=== PATIENT | female | born 1955 | race Caucasian/White ===

== ENCOUNTER 2021-04-01 22:00 | Observation (INO) ==
[2021-04-01] MEDS ORDERED: ASPIRIN CHEW 324 MG PO STA (22:27)
[2021-04-01 22:39] LABS: Basophils # (auto) 0.04 K/uL (0-0.2); Basophils % (auto) 0.4 %; Eosinophils # (auto) 0.34 K/uL (0-0.5); Eosinophils % (auto) 3.5 %; Hematocrit (blood only) 38.8 % (37-47); Hemoglobin 13.7 g/dL (12.0-16.0); Immature Granulocytes # (auto) 0.01 K/uL (0.00-0.02); Immature Granulocytes % (auto) 0.1 %; Lymphocytes # (auto) 4.03 K/uL (1.2-3.4); Lymphocytes % (auto) 41.3 %; Mean Corpuscular Hemoglobin 30.5 pg (25-34); Mean Corpuscular Hgb Conc 35.3 g/dL (32-36); Mean Corpuscular Volume 86.4 fL (80-100); Mean Platelet Volume 10.7 fL (7.4-10.4); Monocytes # (auto) 1.02 K/uL (0.11-0.59); Monocytes % (auto) 10.5 %; Neutrophils # (auto) 4.32 K/uL (1.4-6.5); Neutrophils % (auto) 44.2 %; Platelet Count 246 K/uL (130-400); RDW Coefficient of Variation 13.1 % (11.5-14.5); RDW Standard Deviation 41.7 fL (36.4-46.3); Red Blood Count 4.49 M/uL (4.2-5.4); White Blood Count 9.76 K/uL (4.8-10.8)
--- NOTE | 2021-04-01 22:40 | Emergency Department Note ---
History of Present Illness General Chief Complaint: Chest Pain Stated Complaint: CHEST PAIN - SOB - JAW PAIN - HEADACHE Time Seen by Provider: 04/01/21 22:10 History of Present Illness Provider Complaint: chest pain Onset (ago): hour(s) 3 Time: 19:30 Duration: improved Onset: during rest Pain Location: substernal Pain Radiation: jaw/teeth Severity: moderate Maximum Pain Intensity: 8 Current Pain Intensity: 1 Quality: + other (pressure) Relieved By: + nothing Exacerbated By: + nothing Context: + recent travel (travel to [place]); no recent illness, no recent surgery, no recent immobilization, no trauma/injury and no history of DVT/PE Associated symptoms: + dyspnea; no nausea, no vomiting, no syncope, no palpitations, no fever, no cough and no leg swelling Home Medications Medication Instructions Recorded Confirmed Type cholecalciferol (vitamin D3) 0 mcg PO DAILY 04/01/21 04/01/21 History [Vitamin D3] magnesium 200 mg PO DAILY 04/01/21 04/01/21 History vitamin E 0 unit PO DAILY 04/01/21 04/01/21 History Allergies Allergy/AdvReac Type Severity Reaction Status Date / Time codeine Allergy Mild Rash Verified 04/01/21 22:56 Past Med/Surg History Medical History (Updated 04/02/21 @ 00:44 by Antonio Caal) HLD (hyperlipidemia) No pertinent past medical history Surgical History (Updated 04/01/21 @ 22:38 by Antonio Caal) No pertinent past surgical history Social History Smoking Status: Former smoker Tobacco Type: Cigarettes Feels Safe at Home: Yes Review of Systems A total of 10 systems reviewed and were otherwise negative Physical Exam Vital Signs Vital Signs - 24 hr 04/01/21 22:04 04/01/21 22:14 04/01/21 22:20 Temperature 36.4 C L Temperature Source Temporal Artery Scan Pulse Rate 88 84 Pulse Rate from SpO2 Sensor 85 Pulse Rhythm Regular Respiratory Rate 16 15 Respiratory Depth Normal Blood Pressure 125/81 Blood Pressure Mean 95 Pulse Oximetry 100 100 Oxygen Delivery Method Room Air Room Air Sepsis Recent Fever Within 48 Hours No Sepsis New/Unexplained Change in Mental Status No Sepsis Action Taken by Nursing No Action Required Physical Exam GENERAL: She is oriented to person, place, and time. She appears well-developed and well-nourished. She does not appear distressed. HENT: Exam performed. -Head: Normocephalic and atraumatic. -Right Ear: External ear normal. No mastoid tenderness. -Left Ear: External ear normal. No mastoid tenderness. -Mouth/Throat: The oropharynx is clear and moist. No trismus in the jaw. No dental abscesses or uvula swelling. No oropharyngeal exudate or tonsillar abscesses. EYES: Conjunctivae and EOM are normal. Pupils are equal, round, and reactive to light. Right eye exhibits no discharge. Left eye exhibits no discharge. No scleral icterus. NECK: Normal range of motion. Neck supple. No JVD present. No spinous process t enderness present. No carotid bruit present. No rigidity. No tracheal deviation and normal range of motion present. No Brudzinski's sign and no Kernig's sign noted. CV: Normal rate, regular rhythm, normal heart sounds and intact distal pulses. There is no peripheral edema. Palpable radial pulses bue. PULM/CHEST: Effort normal and breath sounds normal. No respiratory distress. No stridor. She has no wheezes. She has no rales. -Chest Wall: She exhibits no tenderness. ABD: The abdomen is soft. Bowel sounds are normal. She has no distension. No mass is present. There is no tenderness. There is no rebound, no guarding, no Koroma's sign and no tenderness at McBurney's point. Rovsig negative MUSC/SKEL: Normal range of motion. There is no peripheral edema, tenderness or deformity. LYMPH: No cervical adenopathy. NEURO: She is alert and oriented to person, place, and time. She has normal stre ngth. No cranial nerve deficit or sensory deficit. Coordination and gait normal. GCS eye subscore is 4. GCS verbal subscore is 5. GCS motor subscore is 6. Cerebellar tests wnl. SKIN: Skin is warm and dry. She is not diaphoretic. PSYCH: She has a normal mood and affect. Behavior is normal. Judgment and thought content normal. Course Course 2209: The patient was evaluated in room A11. A complete history and physical exam was performed Cardiac monitoring: An order was placed for continuous cardiac monitoring. The monitor shows a rate of 80 with sinus rhythm 0042: Vital signs stable. Labs and imaging within normal limits. Heart score moderate. Patient will be admitted to the [facility] Hospitalist team Dr. Coleman notified Administered Medications Discontinued Medications Aspirin (Aspirin Chew 324 Mg) 324 mg PO NOW STA Stop: 04/01/21 22:28 Last Admin: 04/01/21 22:34 Dose: 324 mg Documented by: [id number] Ioversol (Optiray 350 500ml) 114 ml IV ONCE ONE Stop: 04/01/21 23:54 Last Admin: 04/01/21 23:53 Dose: 114 ml Documented by: [id number] Medical Decision Making Laboratory Data Result diagrams: 04/01/21 22:20 04/01/21 22:20 Labs: Lab Results 04/01/21 04/01/21 04/01/21 Range/Units 22:20 22:20 22:20 WBC 9.76 (4.8-10.8) K/uL RBC 4.49 (4.2-5.4) M/uL Hgb 13.7 (12.0-16.0) g/dL Hct 38.8 (37-47) % MCV 86.4 (80-100) fL MCH 30.5 (25-34) pg MCHC 35.3 (32-36) g/dL RDW Std Deviation 41.7 (36.4-46.3) fL RDW Coeff of Glenn 13.1 (11.5-14.5) % Plt Count 246 (130-400) K/uL MPV 10.7 H (7.4-10.4) fL Immature Gran % (Auto) 0.1 % Neut % (Auto) 44.2 % Lymph % (Auto) 41.3 % [place] % (Auto) 10.5 % Eos % (Auto) 3.5 % Baso % (Auto) 0.4 % Neut # (Auto) 4.32 (1.4-6.5) K/uL Lymph # (Auto) 4.03 H (1.2-3.4) K/uL [place] # (Auto) 1.02 H (0.11-0.59) K/uL Eos # (Auto) 0.34 (0-0.5) K/uL Baso # (Auto) 0.04 (0-0.2) K/uL Immature Gran # (Auto) 0.01 (0.00-0.02) K/uL PT Cancelled INR Cancelled D-Dimer Cancelled Sodium 141 (136-145) mmol/L Potassium 3.8 (3.5-5.1) mmol/L Chloride 109 H (98-107) mmol/L Carbon Dioxide 23 (21-32) mmol/L Anion Gap 8.0 (3-11) BUN 19 H (7-18) mg/dl Creatinine 0.85 (0.6-1.2) mg/dl Est Cr Clr Drug Dosing 66.2 ml/min Est GFR ( Amer) 83.9 Est GFR (Non-Af Amer) 72.4 BUN/Creatinine Ratio 22.4 H (10-20) Glucose 136 H (70-99) mg/dl Calcium 9.3 (8.5-10.1) mg/dl Troponin I < 0.015 (0-0.045) ng/ml Lipase 185 (73-393) U/L Imaging Data Chest x-ray: My impression: Chest x-ray negative. Airway clear. No pneumothorax. No consolidation. No cardiomegaly or cephalization.. No free air under the diaphragm. No fractures of the skeletal structures. Radiologist's impression: Preliminary Findings Only See Final Report For Complete Findings CTA CHEST: No pulmonary embolism. Normal caliber aorta. No dissection. Lungs are clear. No pleural effusion or pneumothorax. Heart size normal. Radiologist: Allan Linares MD Study ready at 23:59 and initial results transmitted at 00:09 ECG Data Indication: chest pain Rate (beats per minute): 79 Rhythm: normal sinus Findings: no ST depression, no ST elevation and no prolonged QT MDM Narrative Vital signs stable. Labs and imaging within normal limits. Heart score moderate. Patient will be admitted to the [facility] hospitalist team Dr. Coleman notified Impression & Plan Chest pain Discharge Plan Visit Data Chief Complaint: Chest Pain Stated Complaint: CHEST PAIN - SOB - JAW PAIN - HEADACHE ED Provider: Antonio Caal Discharge Problem: Chest pain Patient Disposition: Being Evaluated by Hospitalist Forms Stand Alone Forms: My [facility] [employer] Prescriptions Prescriptions: No Action vitamin E 400 unit Capsule 0 unit PO DAILY RF: 0 cholecalciferol (vitamin D3) [Vitamin D3] 25 mcg (1,000 unit) Capsule 0 mcg PO DAILY RF: 0 magnesium 200 mg Tablet 200 mg PO DAILY RF: 0 Referrals Referrals: PCP,NO [Primary Care Provider] - Discharge Problem: Chest pain Qualifiers: Chest pain type: unspecified Qualified Code(s): R07.9 - Chest pain, unspecified
[2021-04-01 23:01] LABS: Blood Urea Nitrogen 19 mg/dl (7-18); Calcium 9.3 mg/dl (8.5-10.1); Carbon Dioxide 23 mmol/L (21-32); Chloride 109 mmol/L (98-107); Creatinine Clr Calc Pharmacy 66.2 ml/min; Est GFR (African American) 83.9; Est GFR (Non-African American) 72.4; Glucose 136 mg/dl (70-99); Lipase 185 U/L (73-393); Potassium 3.8 mmol/L (3.5-5.1); Sodium 141 mmol/L (136-145); Troponin I < 0.015 ng/ml (0-0.045)
[2021-04-01 23:03] LABS: BUN Creatinine Ratio 22.4 (10-20)
[2021-04-01] MEDS ORDERED: OPTIRAY 350 500ml IV ONE (23:53)
[2021-04-02 02:46] LABS: Influenza A virus by PCR Negative (Neg); Influenza B virus by PCR Negative (Neg); RSV by PCR Negative (Neg); SARS CoV2 RNA(COVID-19) InHosp NEGATIVE (Negative)
--- NOTE | 2021-04-02 03:18 | History and Physical Report ---
DATE OF ADMISSION: 04/02/2021 CHIEF COMPLAINT: Chest pain. HISTORY OF PRESENT ILLNESS: This is a 65-year-old female with past medical history significant for nontoxic multinodular goiter, history of hemorrhoids, colon polyps, hyperlipidemia, presents with chest pain. The patient in the evening around 7:30 p.m., she was watching TV when she noticed pain and pressure like feeling below the sternum and it was 2-3/10 severity pain, but it progressed to 8/10 severity, at one point radiating to her jaws and she was feeling very short of breath. She decided to come to the ER. In the ER, she was given 4 aspirins. Currently, pain is almost gone. There is no shortness of breath, no headache, no blurred vision, no earache, no runny nose, no sore throat, no cough, no fever, no chills, no nausea, no abdominal pain. Normal bowel and bladder movements. Otherwise, ambulates fine. She has done with 2 shots of COVID. ALLERGIES: CODEINE. PAST MEDICAL HISTORY: As mentioned above. PAST SURGICAL HISTORY: Colonoscopy, removal of thyroidectomy. MEDICATIONS: Recently started on atorvastatin 10 mg p.o. daily. FAMILY HISTORY: Significant for mother had breast cancer, osteoporosis. Father has lung cancer. Brother has Leanna cell cancer. SOCIAL HISTORY: . Former smoker, quit in 1969, smoked half pack a day for 3 years. Alcohol occasional. No drug use. REVIEW OF SYMPTOMS: As per HPI. Rest of review of systems negative. PHYSICAL EXAMINATION: GENERAL: The patient is of moderate build, not in acute distress. VITAL SIGNS: Temperature 36.4, pulse 84, respiratory rate 15, blood pressure 125/81, oxygen 100% on room air. HEENT: Pupils equal, round, reactive to light. Oral mucosa moist. NECK: No JVD, no neck masses. CARDIOVASCULAR: S1, S2 heard, regular rate and rhythm, no murmur, no gallop. RESPIRATORY SYSTEM: Normal AP diameter. No accessory muscle use. No wheezing, no crackles. ABDOMEN: Soft, bowel sounds present, nontender. No distention. CENTRAL NERVOUS SYSTEM: Cranial nerves II-XII are grossly intact. Nonfocal. EXTREMITIES: No edema, no erythema. LABORATORY DATA: WBC 9.7, hemoglobin 13.7, hematocrit 38.8, platelets 246. Sodium 141, potassium 3.8, chloride 109, bicarbonate 23, BUN 19, creatinine 0.8, serum glucose 136, calcium 9.3. Troponin less than 0.015. Lipase 185. CT of the chest, preliminary report, no acute findings. Chest x-ray, no acute findings. EKG: Normal sinus rhythm, rate of 79, no acute ST changes seen. ASSESSMENT AND PLAN: This is a 65-year-old female who presents with chest pain. 1. Chest pain, rule out acute coronary syndrome. Initial workup is negative. Risk factors are age and hyperlipidemia. Recently started on Lipitor, but she did not clam picker the prescription yet. We will follow serial enzymes, echo. We will keep n.p.o. until seen by cardiology. Further recommendation as per cardiology. 2. Hyperlipidemia. Continue statin. Follow up with PCP. 3. Deep venous thrombosis prophylaxis, sequential compression devices. DISPOSITION: Observation in [facility]. Expect discharge home and follow with family doctor. MADALYN
[2021-04-02] MEDS ORDERED: NITROGLYCERIN SL 0.4 MG/TAB TAB SL PRN (04:55)
[2021-04-02] MEDS ORDERED: ACETAMINOPHEN 325 MG TAB PO PRN (04:55)
[2021-04-02 05:55] LABS: Hematocrit (blood only) 37.1 % (37-47); Hemoglobin 12.8 g/dL (12.0-16.0); Mean Corpuscular Hemoglobin 30.3 pg (25-34); Mean Corpuscular Hgb Conc 34.5 g/dL (32-36); Mean Corpuscular Volume 87.7 fL (80-100); Mean Platelet Volume 9.9 fL (7.4-10.4); Platelet Count 202 K/uL (130-400); RDW Coefficient of Variation 13.3 % (11.5-14.5); RDW Standard Deviation 42.7 fL (36.4-46.3); Red Blood Count 4.23 M/uL (4.2-5.4); White Blood Count 7.28 K/uL (4.8-10.8)
[2021-04-02 06:13] LABS: BUN Creatinine Ratio 27.4 (10-20); Blood Urea Nitrogen 19 mg/dl (7-18); Carbon Dioxide 27 mmol/L (21-32); Chloride 111 mmol/L (98-107); Creatinine Clr Calc Pharmacy 81.3 ml/min; Est GFR (African American) 107.1; Est GFR (Non-African American) 92.4; Glucose 102 mg/dl (70-99); Magnesium 2.2 mg/dl (1.8-2.4); Potassium 3.8 mmol/L (3.5-5.1); Sodium 142 mmol/L (136-145)
[2021-04-02 06:17] LABS: Troponin I < 0.015 ng/ml (0-0.045)
[2021-04-02 06:54] LABS: Basophils # (auto) 0.04 K/uL (0-0.2); Basophils % (auto) 0.5 %; Eosinophils # (auto) 0.34 K/uL (0-0.5); Eosinophils % (auto) 4.7 %; Immature Granulocytes # (auto) 0.01 K/uL (0.00-0.02); Immature Granulocytes % (auto) 0.1 %; Lymphocytes # (auto) 3.73 K/uL (1.2-3.4); Lymphocytes % (auto) 51.2 %; Monocytes # (auto) 0.53 K/uL (0.11-0.59); Monocytes % (auto) 7.3 %; Neutrophils # (auto) 2.63 K/uL (1.4-6.5); Neutrophils % (auto) 36.2 %
--- NOTE | 2021-04-02 08:17 | CT Scan Report ---
CT ANGIOGRAM OF THE CHEST CLINICAL HISTORY: Chest pain and difficulty breathing. Possible acute pulmonary embolism COMPARISON STUDY: Chest x-ray dated 04/01/2021 TECHNIQUE: Following the IV administration of 114 mL of Optiray, CT angiogram of the thorax was perfo rmed from the thoracic inlet to the lung bases utilizing the pulmonary embolus protocol. Images are r eviewed in the axial, sagittal, and coronal planes. IV contrast was administered without complication . MIP imaging was performed. A dose lowering technique was utilized adhering to the principles of [place] NICKOL[place]. CT DOSE: 222.34 mGy.cm FINDINGS: There is a 10 mm right lobe thyroid nodule. The patient appears be status post a partial left thyroid ectomy. There is a 28 mm left lobe hepatic cyst. No pathologically enlarged axillary mediastinal or hilar lymph nodes were visualized. There was no evidence of thoracic aortic dilatation. There were no pulmonary artery filling defects to indicate acute pulmonary embolism. No pleural effusions are visualized. There was no evidence of focal pulmonary consolidation. IMPRESSION: 1. No evidence of acute pulmonary embolism 2. No evidence of focal pulmonary consolidation. ACT 112: Negative or not required by law. Electronically signed by: Wilber Chen M.D. 04/02/2021 8:15 AM
--- NOTE | 2021-04-02 08:32 | XRay Report ---
XR chest 1V portable CLINICAL HISTORY: Atypical chest pain COMPARISON STUDY: No previous studies for comparison. FINDINGS: The cardiac and mediastinal contours are normal. There is no evidence of focal pulmonary co nsolidation. There is no evidence of failure. No pleural effusions are visualized.[ IMPRESSION: No active disease in the chest. ACT 112: Negative or not required by law. Electronically signed by: Wilber Chen M.D. 04/02/2021 8:31 AM
[2021-04-02] MEDS ORDERED: CHOLECALCIFEROL 1,000 UNITS 25 MCG TAB PO SCH (09:00)
[2021-04-02] MEDS ORDERED: ASPIRIN 81 MG ECTAB PO SCH (09:00)
[2021-04-02] MEDS ORDERED: ATORVASTATIN 10 MG TAB PO SCH (09:00)
--- NOTE | 2021-04-02 10:30 | Cardiology Consultation ---
Date of Consultation April 02, 2021 Assessment & Plan (1) Chest pain: The patient's chest pain is atypical in the sense that it does not occur with activity. Cardiac markers are negative and EKG shows no acute changes. I think she can be discharged home and I will schedule an exercise stress echocardiogram this week as an outpatient. (2) HLD (hyperlipidemia): Continue her current dose of atorvastatin. History of Present Illness Attending Physician: Félix Cevallos MD History of Present Illness This is a pleasant 65-year-old female with minimal past medical history. She is treated for mild hypercholesterolemia, but no history of diabetes, hypertension or previous smoking. Over the past several months she has had which she describes as intermittent chest heaviness which is not associated to activity. Last evening she was in her usual state of health watching TV and once again developed a severe chest pressure and discomfort which brought her to the emergency department. After arrival, her EKG showed no acute changes. Cardiac markers have been negative. She has been pain-free since admission. Allergies Allergy/AdvReac Type Severity Reaction Status Date / Time codeine Allergy Mild Rash Verified 04/01/21 22:56 Home Medications Medication Instructions Recorded Confirmed Type cholecalciferol (vitamin D3) 0 mcg PO DAILY 04/01/21 04/01/21 History [Vitamin D3] magnesium 200 mg PO DAILY 04/01/21 04/01/21 History vitamin E 0 unit PO DAILY 04/01/21 04/01/21 History atorvastatin 10 mg PO DAILY 04/02/21 04/02/21 History Patient History Medical History HLD (hyperlipidemia) No pertinent past medical history Surgical History No pertinent past surgical history Social History Smoking Status: Former smoker Tobacco Type: Cigarettes Smoking End Date: smoked for a couple years in 20's; Hx Alcohol Use: Yes Hx Substance Use: No Preferred Language: Estonian Communication Ability: Effective Beliefs That Will Affect Care: None marital status: Current Living Situation: Spouse Feels Safe at Home: No Assistive Devices: Glasses Review of Systems Review of Systems: All systems reviewed & are unremarkable except as noted in HPI & below Nothing additional to add. Physical Exam Physical Exam: General: no acute distress and stated age Head: normocephalic, no masses, lesions, tenderness or abnormalities Eyes: conjunctiva are pink and non-injected, sclera clear Neck: supple, no adenopathy, no bruits, normal jugular venous pulse, no hepatojugular reflux Chest: normal shape and normal respiratory effort Lungs: clear to auscultation and percussion Cardiac Exam: - regular rate & rhythm, no murmurs gallops or rubs - normal S1, normal S2 Pulses: 2(+) throughout Abdomen: abdomen soft, non-tender, no abnormal masses and no hepatosplenomegaly Musculoskeletal: no gait disturbance, no joint inflammation, no deforming arthritis Extremities: no edema and no cyanosis Neuro: grossly normal exam Results & Data ([facility]) Vital Signs (Past 12 Hours) Vital Signs Temp Pulse Pulse Pulse Resp BP BP 04/02/21 07:39 36.4 C L 58 L 16 120/61 04/02/21 05:36 62 04/02/21 05:06 36.3 C L 69 18 132/88 04/02/21 04:00 61 16 141/65 H 04/02/21 03:30 60 12 128/61 04/02/21 03:00 63 15 102/59 L 04/02/21 02:31 70 15 04/02/21 02:30 77 17 122/74 04/02/21 02:01 70 13 04/02/21 02:00 70 14 108/73 04/02/21 01:31 69 16 04/02/21 01:30 67 16 113/64 04/02/21 01:01 78 16 04/02/21 01:00 73 18 124/78 04/02/21 00:31 75 15 04/02/21 00:30 77 15 119/66 04/02/21 00:01 75 14 04/02/21 00:00 76 17 118/72 04/01/21 23:31 81 23 04/01/21 23:30 81 19 113/69 04/01/21 23:01 81 20 04/01/21 23:00 96 H 16 113/98 04/01/21 22:30 81 20 04/01/21 22:20 84 15 Pulse Ox 04/02/21 07:39 98 04/02/21 05:36 04/02/21 05:06 99 04/02/21 04:00 96 04/02/21 03:30 97 04/02/21 03:00 96 04/02/21 02:31 98 04/02/21 02:30 95 04/02/21 02:01 97 04/02/21 02:00 99 04/02/21 01:31 96 04/02/21 01:30 97 04/02/21 01:01 98 04/02/21 01:00 98 04/02/21 00:31 97 04/02/21 00:30 97 04/02/21 00:01 96 04/02/21 00:00 95 04/01/21 23:31 96 04/01/21 23:30 97 04/01/21 23:01 96 04/01/21 23:00 96 04/01/21 22:30 99 04/01/21 22:20 100 Laboratory Results Laboratory Results - last 24 hr 04/01/21 04/01/21 04/01/21 22:20 22:20 22:20 WBC 9.76 RBC 4.49 Hgb 13.7 Hct 38.8 MCV 86.4 MCH 30.5 MCHC 35.3 RDW Std Deviation 41.7 RDW Coeff of Glenn 13.1 Plt Count 246 MPV 10.7 H Immature Gran % (Auto) 0.1 Neut % (Auto) 44.2 Lymph % (Auto) 41.3 [place] % (Auto) 10.5 Eos % (Auto) 3.5 Baso % (Auto) 0.4 Neut # (Auto) 4.32 Lymph # (Auto) 4.03 H [place] # (Auto) 1.02 H Eos # (Auto) 0.34 Baso # (Auto) 0.04 Immature Gran # (Auto) 0.01 PT Cancelled INR Cancelled D-Dimer Cancelled Sodium 141 Potassium 3.8 Chloride 109 H Carbon Dioxide 23 Anion Gap 8.0 BUN 19 H Creatinine 0.85 Est Cr Clr Drug Dosing 66.2 Est GFR ( Amer) 83.9 Est GFR (Non-Af Amer) 72.4 BUN/Creatinine Ratio 22.4 H Glucose 136 H Calcium 9.3 Magnesium Troponin I < 0.015 Lipase 185 COVID-19 Eval Order SARS-CoV-2 (PCR) Hepatitis C Ab Screen Influenza Type A (PCR) Influenza Type B (PCR) RSV (RT-PCR) 04/02/21 04/02/21 04/02/21 01:55 01:55 05:33 WBC 7.28 RBC 4.23 Hgb 12.8 Hct 37.1 MCV 87.7 MCH 30.3 MCHC 34.5 RDW Std Deviation 42.7 RDW Coeff of Glenn 13.3 Plt Count 202 MPV 9.9 Immature Gran % (Auto) 0.1 Neut % (Auto) 36.2 Lymph % (Auto) 51.2 [place] % (Auto) 7.3 Eos % (Auto) 4.7 Baso % (Auto) 0.5 Neut # (Auto) 2.63 Lymph # (Auto) 3.73 H [place] # (Auto) 0.53 Eos # (Auto) 0.34 Baso # (Auto) 0.04 Immature Gran # (Auto) 0.01 PT INR D-Dimer Sodium Potassium Chloride Carbon Dioxide Anion Gap BUN Creatinine Est Cr Clr Drug Dosing Est GFR ( Amer) Est GFR (Non-Af Amer) BUN/Creatinine Ratio Glucose Calcium Magnesium Troponin I Lipase COVID-19 Eval Order CovFluRsv at [facility] SARS-CoV-2 (PCR) NEGATIVE Hepatitis C Ab Screen Influenza Type A (PCR) Negative Influenza Type B (PCR) Negative RSV (RT-PCR) Negative 04/02/21 04/02/21 05:33 05:33 WBC RBC Hgb Hct MCV MCH MCHC RDW Std Deviation RDW Coeff of Glenn Plt Count MPV Immature Gran % (Auto) Neut % (Auto) Lymph % (Auto) [place] % (Auto) Eos % (Auto) Baso % (Auto) Neut # (Auto) Lymph # (Auto) [place] # (Auto) Eos # (Auto) Baso # (Auto) Immature Gran # (Auto) PT INR D-Dimer Sodium 142 Potassium 3.8 Chloride 111 H Carbon Dioxide 27 Anion Gap 4.0 BUN 19 H Creatinine 0.68 Est Cr Clr Drug Dosing 81.3 Est GFR ( Amer) 107.1 Est GFR (Non-Af Amer) 92.4 BUN/Creatinine Ratio 27.4 H Glucose 102 H Calcium 9.0 Magnesium 2.2 Troponin I < 0.015 Lipase COVID-19 Eval Order SARS-CoV-2 (PCR) Hepatitis C Ab Screen Pending Influenza Type A (PCR) Influenza Type B (PCR) RSV (RT-PCR) Diagnostic Findings Echocardiogram shows essentially an anatomically normal heart. There is normal LV function without wall motion abnormalities. Medications Administered Current Inpatient Medications Acetaminophen (Acetaminophen 325 Mg Tab) 650 mg PO Q4H PRN PRN Reason: Pain or Fever Stop: 05/02/21 04:54 Aspirin (Aspirin 81 Mg Ectab) 81 mg PO QAM ASHWIN Stop: 05/02/21 08:59 Last Admin: 04/02/21 08:27 Dose: 81 mg Documented by: Atorvastatin Calcium (Atorvastatin 10 Mg Tab) 10 mg PO DAILY [facility] Stop: 05/02/21 08:59 Last Admin: 04/02/21 08:27 Dose: Not Given Documented by: Nitroglycerin (Nitroglycerin Sl 0.4 Mg/Tab Tab) 0.4 mg SL UD PRN PRN Reason: Chest Pain Stop: 05/02/21 04:54 Vitamin D (Cholecalciferol 1,000 Units 25 Mcg Tab) 1,000 units PO DAILY ASHWIN Stop: 05/02/21 08:59 Last Admin: 04/02/21 08:27 Dose: 1,000 units Documented by: (1) Chest pain Chest pain type: unspecified Qualified Code(s): R07.9 - Chest pain, unspecified
--- NOTE | 2021-04-02 11:12 | Discharge Summary ---
Date of Service April 02, 2021 Admission HPI Per Admitting Provider This is a 65-year-old female with past medical history significant for nontoxic multinodular goiter, history of hemorrhoids, colon polyps, hyperlipidemia, presents with chest pain. The patient in the evening around 7:30 p.m., she was watching TV when she noticed pain and pressure like feeling below the sternum and it was 2-3/10 severity pain, but it progressed to 8/10 severity, at one point radiating to her jaws and she was feeling very short of breath. She decided to come to the ER. In the ER, she was given 4 aspirins. Currently, pain is almost gone. There is no shortness of breath, no headache, no blurred vision, no earache, no runny nose, no sore throat, no cough, no fever, no chills, no nausea, no abdominal pain. Normal bowel and bladder movements. Otherwise, ambulates fine. She has done with 2 shots of COVID. Admission Exam Per Admitting Provider GENERAL: The patient is of moderate build, not in acute distress. VITAL SIGNS: Temperature 36.4, pulse 84, respiratory rate 15, blood pressure 125/81, oxygen 100% on room air. HEENT: Pupils equal, round, reactive to light. Oral mucosa moist. NECK: No JVD, no neck masses. CARDIOVASCULAR: S1, S2 heard, regular rate and rhythm, no murmur, no gallop. RESPIRATORY SYSTEM: Normal AP diameter. No accessory muscle use. No wheezing, no crackles. ABDOMEN: Soft, bowel sounds present, nontender. No distention. CENTRAL NERVOUS SYSTEM: Cranial nerves II-XII are grossly intact. Nonfocal. EXTREMITIES: No edema, no erythema. Principal Diagnosis Chest pain, atypical hyperlipidemia Discharge Exam GENERAL: WD/WN, female in NAD HEENT: NC/AT,EOMI, PERRL, Oral mucosa moist. NECK: No JVD, no neck masses. CARDIOVASCULAR: S1, S2 heard, regular rate and rhythm, no murmur, no gallop. RESPIRATORY SYSTEM: Normal AP diameter. No accessory muscle use. No wheezing, no crackles. ABDOMEN: Soft, bowel sounds present, nontender. No distention. NEURO: alert and oriented x3, speech fluent, no facial asymmetry, moves extremities EXTREMITIES: No edema, no erythema. Discharge Data Allergies Allergy/AdvReac Type Severity Reaction Status Date / Time codeine Allergy Mild Rash Verified 04/01/21 22:56 Consultations 04/02/21 00:39 ED Decision to Admit Stat 04/02/21 00:41 ED Decision to Admit Stat 04/02/21 08:00 Consult Cardiology Routine Ordered Studies 04/01/21 23:19 CT angio chest PE protocol Urgent IMPRESSION: 1. No evidence of acute pulmonary embolism 2. No evidence of focal pulmonary consolidation. Hospital Course (1) Chest pain: (2) HLD (hyperlipidemia): ASSESSMENT AND PLAN: This is a 65-year-old female who presents with chest pain. 1. Chest pain, rule out acute coronary syndrome. Initial workup is negative. CT PE - negative for PE or consolidation Risk factors are age and hyperlipidemia. Recently started on Lipitor, but she did not orange picker the prescription yet. Troponin negative, ECG w/o any ischemic changes Echo - no significant valvular pathology. Left ventricular is normal in size. There is normal left ventricle wall thickness. Left ventricular systolic function is normal. EF 60 to 65%. Right ventricle systolic function is normal. The left atrial size is normal. Right atrial size is normal. Cardiology was also consulted, and plan for stress echocardiogram this week as an outpatient. Patient is in agreement with the plan. Currently patient is chest pain-free, comfortable and in no distress 2. Hyperlipidemia. Continue statin. Follow up with PCP and cardiology. Total Time Total Time Spent Total Time Spent (In Minutes): 35 Discharge Plan Discharge Items Patient Disposition: Home - Self-Care Reason For Visit: CHEST PAIN Discharge Diagnosis: Chest pain Activity: Per Instructions section Non-emergency contact: Primary Care Provider and Inclusion Specialist Call non-emergency contact if: you have any medication questions and your symptoms worsen Follow-up/Referrals: PCP,NO [Primary Care Provider] - Diet: Heart Healthy Addtl Attending Provider Instructions: Follow up with your primary care doctor and literature professor. It is recommended that you have a stress test done. This will be scheduled for you and you will be contacted about the appointment. In the meantime continue to take aspirin and atorvastatin as was prescribed for you. Pending Studies at Discharge: No Stand-Alone Forms: [employer], Smoking Cessation Medications and DC Order Prescriptions: New aspirin 81 mg Tablet,Delayed Release (Dr/Ec) 81 mg PO QAM Qty: 30 RF: 0 Continued vitamin E 400 unit Capsule 0 unit PO DAILY RF: 0 cholecalciferol (vitamin D3) [Vitamin D3] 25 mcg (1,000 unit) Capsule 0 mcg PO DAILY RF: 0 magnesium 200 mg Tablet 200 mg PO DAILY RF: 0 atorvastatin 10 mg tablet 10 mg PO DAILY RF: 0 Discharge Orders: Discharge Order (Routine); Ordered 04/02/21 Ordered By: Félix Cevallos Admission Data Admit Date/Time: 04/02/21 01:25 Attending Provider: Félix Cevallos Admit Provider: Griffin Coleman Primary Care Provider: PCP,NO Other Providers: Griffin Coleman ; Jakob Gamboa ; Hernán Paris ; Gustavo Gonzales ; Amado Toscano ; Tobin Hawkins ; Christiano Cormier ; Marianna Cool ; Tricia Cristina ; Ling Webb ; Zachery Ingram
--- NOTE | 2021-04-02 22:02 | Electrocardiogram Report ---
Test Reason : Blood Pressure : / mmHG Vent. Rate : 079 BPM Atrial Rate : 079 BPM P-R Int : 156 ms QRS Dur : 088 ms QT Int : 384 ms P-R-T Axes : 075 074 070 degrees QTc Int : 440 ms Poor data quality, interpretation may be adversely affected Normal sinus rhythm Normal ECG No previous ECGs available Confirmed by Kenroy Navarrete ([id number]) on 04/02/2021 10:02:27 PM Referred By: REFERRED SELF Confirmed By:Kenroy Navarrete
== END 2021-04-02 11:58 | disposition home or self-care (01) ==
LOC: ED 22:00 → 2N 22:00